=== PATIENT | female | born 1990 | race Two or more races ===

== ENCOUNTER 2017-03-25 16:39 | Emergency (ER) | payer BC, OTHER ==
[2017-03-25 16:58] VITALS: RESP 18; O2SAT 95
--- NOTE | 2017-03-25 17:01 | EDPHY ---
H & P Time Seen by Provider: 03/25/17 16:58 HPI/ROS: Chief complaint. Shortness of breath HPI. 19-year-old female with history of asthma and left-sided costochondritis presents with 2 days history of shortness of breath. At times short of breath to the point of being dizzy. She feels like she can't take a deep breath. Left -sided chest pain that is typical of her costochondritis however is worse. She has a cough which is chronic. No fever. No unusual leg pain or swelling. She does have an albuterol inhaler and has been using it some. No abdominal pain or vomiting or diarrhea. She was seen in September 2016 for similar symptoms and the diagnosis was bronchitis ROS Constitutional. no fever/chills, no weakness Eyes. no problems with vision ENT. no sore throat, no nasal drainage Cardiovascular. Left-sided chest pain Respiratory. Short of breath and cough Abdominal. no abdominal pain, no nausea/vomiting, no diarrhea . no problems urinating MS. no calf pain/swelling, no neck/back pain, no joint pain Skin. no rash Lymph. no swollen glands Neuro. no headache, no dizziness, no difficulty walking or with speech Past Medical/Surgical History: Past medical history significant costochondritis which is chronic, migraines, asthma Social History: Single, daily smoker, no alcohol Smoking Status: Current every day smoker Physical Exam: General Appearance: Alert well-developed female mild distress vital signs show temp 37.1degrees, heart rate 110, blood pressure 144/97 Eyes: Pupils equal and round no pallor or injection. ENT, Mouth: Mucous membranes are moist. Respiratory: There are no retractions, lungs are clear to auscultation. I do not hear wheezes, rales, rhonchi Cardiovascular: Regular rate and rhythm. Gastrointestinal: Abdomen is soft and nontender, no masses, bowel sounds normal. Neurological: Awake and alert, sensory and motor exams grossly normal. Skin: Warm and dry, no rashes. Musculoskeletal: Neck is supple nontender. Extremities symmetrical, full range of motion. Psychiatric: Patient is oriented X 3, there is no agitation. Constitutional: Initial Vital Signs Temperature (C) 37.1 C 03/25/17 16:56 Heart Rate 110 H 03/25/17 16:56 Respiratory Rate 18 03/25/17 16:56 Blood Pressure 144/97 H 03/25/17 16:56 O2 Sat (%) 95 03/25/17 16:56 O2 Delivery Mode Room Air Allergies/Adverse Reactions: No Known Allergies Allergy (Verified 03/25/17 16:54) Home Medications: Medication Instructions Recorded Albuterol [Ventolin Hfa Inhaler] 2 puffs IH Q4 PRN #1 mdi 03/25/17 Medical Decision Making - Diagnostics Imaging Results: Imaging Impressions Chest X-Ray 03/25/17 17:14 Impression: No lung consolidation. Chest x-ray interpreted by me is normal Procedures: DuoNeb updraft, IV with 1 L normal saline ED Course/Re-evaluation: Re-evaluation at 5:57 p.m.--patient is stable and improved. Breath sounds are full and equal. The patient and I discussed laboratory imaging evaluation. We discussed treatment plan including criteria for return importance of follow-up and further evaluation. She expresses understanding and agreement Differential Diagnosis: I considered pneumonia, bronchitis, pulmonary embolus, pneumothorax - Data Points Laboratory Results: 03/25/17 03/25/17 03/25/17 17:25 17:25 17:25 D-Dimer < 0.27 ug/mLFEU ug/mLFEU (0.00-0.50) Troponin I < 0.012 ng/mL ng/mL (0-0.034) Beta HCG, Qual NEGATIVE Medications Given: Discontinued Medications Albuterol/Ipratropium (Duoneb) 3 ml IH EDNOW ONE Stop: 03/25/17 17:15 Last Admin: 03/25/17 17:29 Dose: 3 ml Sodium Chloride (Ns) 1,000 mls @ 0 mls/hr IV ONCE ONE PRN Reason: Wide Open Stop: 03/25/17 17:15 Last Admin: 03/25/17 17:29 Dose: 1,000 mls Departure - Departure Disposition: Home, Routine, Self-Care Clinical Impression: Exacerbation of asthma Condition: Good Instructions: Asthma (ED) Additional Instructions: Albuterol inhaler using 2 puffs every 4 hours for the next 48 hours while awake. Prednisone daily for the next 4 days. Return for worsening breathing or chest discomfort. Recheck in 2 days if not improved Referrals: NONE *PRIMARY CARE P,. [Primary Care Provider] - As per Instructions Stand Alone Forms: Work Excuse Prescriptions: Albuterol [Ventolin Hfa Inhaler] 2 puffs IH Q4 PRN #1 mdi PRN Reason: Short Of Breath/Dyspnea
[2017-03-25] MEDS ORDERED: IPRATROPIUM/ALBUTEROL 3 ML DEYVIAL ONE (17:14)
[2017-03-25] MEDS ORDERED: NS 1,000 ML IV ONE (17:14)
[2017-03-25] MEDS ORDERED: IPRATROPIUM/ALBUTEROL 3 ML DEYVIAL IH ONE (17:14)
[2017-03-25 18:13] VITALS: BP 135/92; PULSE 95; TEMP 98.6
== END 2017-03-25 18:12 | disposition home or self-care (01) ==
LOC: CED 16:39
DX: J45.901 Unspecified asthma with (acute) exacerbation (principal); F17.200 Nicotine dependence, unspecified, uncomplicated
CPT/HCPCS: 71010-PO; 84484-PO; 84703-PO; 85378-PO

== ENCOUNTER 2017-05-04 18:07 | Emergency (ER) | payer BC, OTHER ==
[2017-05-04 18:20] VITALS: BP 147/80; PULSE 113; RESP 18; TEMP 98; O2SAT 97
--- NOTE | 2017-05-04 19:03 | EDPHY ---
H & P Time Seen by Provider: 05/04/17 18:27 HPI/ROS: CHIEF COMPLAINT: Bump on the inner thigh HISTORY OF PRESENT ILLNESS: 27-year-old female states that yesterday she needed to work 12 hour shift. As the shift 1 on she developed more more discomfort in the right medial thigh where the skin is rubbing against the other thigh. She had shaped just prior to going to work. When she got off work she noticed a tender, swollen, firm area as well as a superficial abrasion along the inner aspect of the thigh. She states it is very painful to walk and very painful when the skin rubs against her other thigh. No fever, chills, chest pain, shortness of breath, palpitations, vomiting, diarrhea, urinary complaints, headache, lightheadedness. REVIEW OF SYSTEMS: Aside from elements discussed in the HPI, a comprehensive 10-point review of systems was reviewed and is negative. PAST MEDICAL HISTORY: Methamphetamine abuse. SOCIAL HISTORY: Smoker. VITAL SIGNS: see nurse's notes. GENERAL: Overweight individual. No acute distress. HEENT: Benign exam. LUNGS: Clear to auscultation. CARDIAC: Regular rate and rhythm, no rubs, murmurs or gallops. ABDOMEN: Soft, nontender, nondistended, bowel sounds normal. BACK: No CVA tenderness. No vertebral tenderness. EXTREMITIES: No edema, FROM. NEURO: Alert and oriented, grossly nonfocal. SKIN: On the right inner thigh, just below the perineum, there is a tender, firm, 1 cm nodule area. No surrounding erythema. No purulence. Patient also has an area of chafing along her inner thigh which is very tender.. Smoking Status: Current every day smoker Constitutional: Initial Vital Signs Temperature (C) 36.6 C 05/04/17 18:16 Heart Rate 113 H 05/04/17 18:16 Respiratory Rate 18 05/04/17 18:16 Blood Pressure 147/80 H 05/04/17 18:16 O2 Sat (%) 97 05/04/17 18:16 O2 Delivery Mode Room Air Allergies/Adverse Reactions: No Known Allergies Allergy (Verified 03/25/17 16:54) Home Medications: Medication Instructions Recorded Albuterol [Ventolin Hfa Inhaler] 2 puffs IH Q4 PRN #1 mdi 03/25/17 Cephalexin [Keflex (RX)] 500 mg PO TID 7 Days 05/04/17 Fluconazole [Diflucan] 200 mg PO ONCE #1 tablet 05/04/17 Medical Decision Making ED Course/Re-evaluation: 27-year-old female presenting with a tender, firm, nodule in the inner aspect of her thigh. She had just shaved yesterday and there is a hair follicle at the center of this area. I suspect this may be an early developing infection. Patient was placed on Keflex. She also has chafing which has occurred on the thigh. I held a long discussion with the patient regarding appropriate care for the area of chafing as well as importance of antibiotics, warm compresses, and close observation to ensure that the area does not become abscess. Differential Diagnosis: Differential diagnoses for the patient's symptom complex was considered including but not limited to abscess, folliculitis, cellulitis, bartholin gland cyst, skin abrasion, chafing. Departure - Departure Disposition: Home, Routine, Self-Care Clinical Impression: Skin pustule, Abrasion Cellulitis Qualifiers: Site of cellulitis: unspecified site Qualified Code(s): L03.90 - Cellulitis, unspecified Condition: Good Instructions: Abscess (ED), Abrasion (ED), Warm Compress or Soak (ED) Additional Instructions: 1. For the swollen area, I would suggest warm compresses to 3 times daily. Make sure this area does not become significantly red, more swollen, or warm to the touch. If you developed discharge or the area comes to a head, please return for formal incision and drainage. You been placed on Keflex 500 mg 3 times a day to cover for early infection. 2. For the chafing, I suggest obtaining a body glide product. You may find this at a running store or sporting goods store. I also suggest longer spanx type under clothing or bike shorts. Make sure these are not to warm or heavy. Using baby powder on the skin to keep it dry may also be helpful. 3. Off work tomorrow. 4. Return to the emergency department or seek care urgently if you're not improving as expected. Referrals: NONE *PRIMARY CARE P,. [Primary Care Provider] - As per Instructions Riddhi Dias MD [Medical Doctor] - As per Instructions Stand Alone Forms: Work Excuse Prescriptions: Cephalexin [Keflex (RX)] 500 mg PO TID 7 Days Fluconazole [Diflucan] 200 mg PO ONCE #1 tablet
== END 2017-05-04 19:14 | disposition home or self-care (01) ==
LOC: CED 18:07
DX: S70.311A Abrasion, right thigh, initial encounter (principal); L03.115 Cellulitis of right lower limb; L08.9 Local infection of the skin and subcutaneous tissue, unspecified; F17.200 Nicotine dependence, unspecified, uncomplicated; X58.XXXA Exposure to other specified factors, initial encounter